=== PATIENT | male | born 1990 | race Caucasian/White ===

== ENCOUNTER 2021-02-02 01:30 | Emergency (ER) | payer OTHER, SELFPAY ==
[2021-02-02 01:36] VITALS: BP 136/75; PULSE 99; RESP 16; TEMP 36.9; O2SAT 98; BMI 24.4
--- NOTE | 2021-02-02 01:40 | ED.OVERDOSE ---
HPI - Overdose General Chief Complaint: Overdose Stated Complaint: HEROIN OD,16MG NASAL NARCAN BY FRIEND Time Seen by Provider: 02/02/21 01:40 Source: patient and EMS Mode of arrival: EMS Limitations: no limitations History of Present Illness HPI Narrative: 31 years old male came in for evaluation after was given 16 mg of nasal Narcan by his friends. 31-year-old male admitted to use 1 bag of heroin IV, patient stated that he has been clean for 6 years used today because he was with a bad company today, patient do not feel depressed or suicidal, patient found by his friends unresponsive was given for of nasal Narcan 4 mg each and patient responded after, patient arrived to the ED awake, and alert, with stable vital signs. Patient fair embarrassed and regret what happened last night. Review of Systems Review of Systems: All other systems are reviewed and are negative Constitutional: Reports as per HPI and Reports no additional constitutional complaints Eyes: Reports as per HPI and Reports no additional eye complaints Reports system reviewed and no additional complaints, except as documented Cardiovascular: Reports as per HPI and Reports no additional cardiovascular complaints Respiratory: Reports as per HPI and Reports no additional respiratory complaints Gastrointestinal: Reports as per HPI and Reports no additional gastrointestinal complaints Genitourinary: Reports no additional female genitourinary complaints Musculoskeletal: Reports no additional musculoskeletal complaints Skin/Breast: Reports system reviewed and no additional complaints, except as docu Psychiatric: Reports no additional psychiatric complaints Endocrine: Reports no additional endocrine complaints Hematologic/Lymphatic: Reports no additional hematologic/lymphatic complaints Allergic/Immunologic: Reports no additional allergic/immunologic complaints Reports system reviewed and no additional complaints, except as documented and Reports Abnormal speech present [facility] Social History Social History Alcohol intake: unknown Patient Tobacco Use Status: Tobacco use Unknown Use of substances other than those prescribed or required for medical reasons: Yes Substance Use Type: Heroin and IV Drugs Substance Use Frequency: Recent Binge Physical Exam Vital Signs: Vital Signs: Vital signs have been reviewed as appeared to be correct. Blood pressure normal. Heart rate normal. Respiration rate normal. Temperature normal. Oxygen saturation normal. Appearance: Alert. Oriented X3. No acute distress. Head: Normal external exam. Normocephalic. Atraumatic. No Griffiths signs noted. No raccoon eyes noted Eyes: PERRLA. EOMI. Conjunctiva and sclera normal. Eyelids normal. ENT: TM's Normal. Pharynx normal. Uvula midline. Moist mucous membranes. No trismus noted. No drooling noted. No muffled voice noted. Neck: Normal inspection. Neck supple. FROM. No adenopathy. Thyroid Normal. No meningeal signs. No neck mass noted. CVS: Normal heart rate and rhythm. Heart sound normal. No murmurs noted. Pulses normal throughout. Respiratory: No respiratory distress. Painless inspiration. Breath sounds normal. No wheezes/rales/rhonchi noted. Chest nontender. No accessory muscle usage noted or decreased air movement noted. Abdomen: Soft and nontender. Bowel sounds normal in all 4 quadrants. No distention noted. No organomegaly noted. No visible injury noted. Back: No CVA tenderness. Full range of motion noted. Skin: Skin warm and dry. Normal skin color. Normal skin turgor. No rashes/lesions/lacerations noted. Extremities: No lower extremity edema. Extremities exhibit normal range of motion. Extremities nontender. Neuro: Oriented X 3. No motor deficit. No sensory deficit. Reflexes normal. Course Course Course Narrative: Assessment and plan. 31-year-old male came in with accidental overdose on heroin, patient required 60 mg of Narcan, patient in the emergency department remained awake with stable vital signs. Will continue monitoring the patient,. Discharge Plan Discharge Clinical Impression: Drug overdose Patient Disposition: Home, Self-Care Instructions: Polysubstance Abuse (ED) Additional Instructions: Follow-up with your PCP as needed, return to the emergency room if needed emergency medical attention.
[2021-02-02 04:15] VITALS: PULSE 72; RESP 16
--- NOTE | 2021-02-02 09:28 | MHC.RECOVSUP ---
Recovery Support note: Patient is a 31 year old Russian speaking male who presented to [facility] ED via EMS after an accidental overdose. This communications writer met with patient in ED17 to discuss his substance use and treatment options. Patient reports he was sober for six years prior to relapsing yesterday. Patient reports it was due to poor judgment, being around the wrong people and having stressful events going on in his life. Patient reports he was connected with counseling services through [facility] however was incarcerated and has yet to reopen services. Patient reports he plans to do so. Patient reports he was on medicated assisted treatment however stopped two years ago. Discussed relapse and recovery supports with patient. Provided patient with information on [facility] [place] and encouraged patient to reach out for support. Patient reports no questions or concerns at this time. Discussed case with patient's RN.
== END 2021-02-02 09:41 | disposition home or self-care (01) ==
LOC: HO.ED 02:25
PROVIDERS: Emergency Provider Emergency Medicine
DX: T40.1X1A Poisoning by heroin, accidental (unintentional), initial encounter (principal); R40.4 Transient alteration of awareness; Y92.410 Unspecified street and highway as the place of occurrence of the external cause
CPT/HCPCS: 99284